=== PATIENT | female | born 1975 | race African-American/Black ===

== ENCOUNTER 2020-06-29 11:39 | Emergency (ER) | payer MEDICAID ==
[~2020-06-29] VITALS: Ht 167.6 cm; Wt 70.0 kg
[2020-06-29] MEDS ORDERED: TETRACAINE 0.5% OPHTH DROPS 4ML BOTHEYE ONE (12:15)
[2020-06-29 12:37] VITALS: BP 130/79
== END 2020-06-29 12:39 | disposition home or self-care (01) ==
LOC: ER 11:39
DX: R51.9 Headache, unspecified (principal)
CPT/HCPCS: 99281